=== PATIENT | female | born 1995 | race Caucasian/White ===

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

== ENCOUNTER 2017-08-10 11:37 | Emergency (ER) | payer BC ==
[~2017-08-10] VITALS: Ht 170.2 cm; Wt 59.7 kg
[~2017-08-10 11:37] MED LIST: BCPILLS PO
[2017-08-10 11:42] VITALS: TEMP 37.2; Ht 170.2 cm; Wt 59.7 kg
--- NOTE | 2017-08-10 12:00 | EMERGENCY ROOM VISIT NOTE ---
ED Visit Note First contact with patient: 11:45 CHIEF COMPLAINT: Sore throat, rash / HISTORY OF PRESENT ILLNESS: This 22-year-old female presents to ER with chief complaint of a rash on multiple parts of her body which started on Wednesday. She states it started on her forearms and then spread to her chest abdomen back and buttocks and upper legs. She states it is slightly itchy she has been taking Benadryl for the itch. The patient also states that she has had a sore throat since the onset of the rash but denies any ear pain, head congestion, fever, cough or chest pain. The patient does have a history of mono. Patient was seen at [facility] yesterday for her symptoms. Strep test was negative. They also did a CBC and her white count was normal. They told her the rash was most likely viral. The patient states that she talk to her sister who is in the medical field and told her to get a second opinion and something more for her itch. The patient denies any new medications or any new environmental exposures. The patient denies any new detergents or lotions. REVIEW OF SYSTEMS: 6 system review was performed and was negative unless stated otherwise in history of present illness. PMH: The patient is healthy; there is no significant medical or surgical history. SOCIAL HISTORY: Patient is a [employer] student. The patient denies any tobacco use or alcohol use. PHYSICAL EXAM: Vital Signs were reviewed: Reviewed Nurse's notes and agree. Oxygen saturation is 99 % on room air which is normal . GENERAL: 22-year-old female appears in no acute distress. MENTAL STATUS: Alert, oriented, coherent. EARS: Canals clear. TMs good light reflex, no erythema or fluid level noted. NOSE: Nasal mucosa without erythema engorgement. PHARYNX: Moderate erythema, no edema noted. No exudate noted. Airway is adequate. NECK: Supple, non-tender. No lymphadenopathy noted. LUNGS: Clear to auscultation without wheezes rales or rhonchi. CARDIAC: Regular rate and rhythm without murmur. SKIN: Confluent erythematous macular papular rash on her buttocks and lower back. Similar rash noted on the forearms. No upper back rash noted. Chest is clear. There is also some erythematous macular rash noted on the upper thighs. DIAGNOSIS: Acute pharyngitis, probably viral Viral exanthem DISCHARGE INSTRUCTIONS & TREATMENT: Read the pharyngitis (sore throat) instruction sheet. Take Medrol Dosepak as prescribed. Take Zantac 150 mg daily. May use Benadryl at night since this may make you drowsy and take either Claritin or Zyrtec in the morning. If symptoms persist or worsen, return to ER. Current/Historical Medications Scheduled Control Pills ( Control Pills), 1 TAB PO DAILY Allergies Coded Allergies: No Known Allergies (Unverified , 07/18/16) Vital Signs Date Time Temp Pulse Resp B/P (MAP) Pulse Ox O2 Delivery O2 Flow Rate FiO2 08/10/17 11:42 37.2 81 16 144/83 99 Room Air Departure Information Referrals No Doctor, Assigned (PCP) Patient Instructions My [facility]
[2017-08-10] MEDS ORDERED: METH4PAK PO (12:02)
[2017-08-10 12:14] VITALS: BP 135/77; PULSE 77; O2SAT 99
== END 2017-08-10 12:15 | disposition home or self-care (01) ==
LOC: C.EDB 11:38 → C.EDD 12:15
DX: J02.9 Acute pharyngitis, unspecified (principal)